=== PATIENT | male | born 1975 | race Caucasian/White ===

== ENCOUNTER 2022-07-21 12:41 | Outpatient (CLI) | payer OTHER | END 2022-07-21 12:42 | disposition home or self-care (01) | LOC: CSHMRI 12:41 | PROVIDERS: ATTEND Physician Assistant Medical | DX: M23.8X2 Other internal derangements of left knee (principal); S86.992A Other injury of unspecified muscle(s) and tendon(s) at lower leg level, left leg, initial encounter ==